=== PATIENT | male | born 1945 | race Caucasian/White ===

== ENCOUNTER 2017-01-15 09:49 | Emergency (ER) | payer MEDICARE ==
[~2017-01-15 09:49] MED LIST: ALBU8.5H3 INH; AMLO5TAB4 PO; ASPI-171 PO; BENZ100C2 PO; CEPH-264 PO; GUAI600T38 PO; IPRA3AMP NEB; POLY17PO5 PO; PRED-220 PO; ROFL500T PO
[2017-01-15] MEDS ORDERED: IV NORMAL SALINE 1,000ML 1,000 ML IV ONE (10:15)
[2017-01-15 10:26] LABS: BASO # 0.1 x10^3/uL (0.0-0.2); BASO % 1 % (0-3); EOS # 0.2 x10^3/uL (0.0-0.7); EOS % 2 % (0-3); HEMATOCRIT 46.3 % (39.0-53.0); HEMOGLOBIN 15.8 g/dL (13.0-17.5); LYMPH # 1.2 x10^3/uL (1.0-4.8); LYMPH % 13 % (24-48); MEAN CORPUSCULAR HEMOGLOBIN 28 pg (25-35); MEAN CORPUSCULAR HGB CONC 34 g/dL (31-37); MEAN CORPUSCULAR VOLUME 82 fL (79-100); MONO # 0.4 x10^3/uL (0.0-1.1); MONO % 5 % (0-9); NEUT # 7.3 x10^3uL (1.8-7.7); NEUT % 79 % (31-73); PLATELET COUNT 546 x10^3/uL (140-400); RED BLOOD COUNT 5.68 x10^6/uL (4.30-5.70); RED CELL DISTRIBUTION WIDTH 19.7 % (11.5-14.5); WHITE BLOOD COUNT 9.2 x10^3/uL (4.0-11.0)
[2017-01-15 10:37] LABS: ALBUMIN/GLOBULIN RATIO 1.2 (1.0-1.7); CALCIUM 9.3 mg/dL (8.5-10.1); CREATININE 0.8 mg/dL (0.7-1.3); POTASSIUM 3.9 mmol/L (3.5-5.1); TOTAL BILIRUBIN 1.4 mg/dL (0.2-1.0); TOTAL PROTEIN 7.3 g/dL (6.4-8.2)
[2017-01-15 11:08] LABS: BILIRUBIN,URINE NEG (NEG); CLARITY,URINE CLOUDY; COLOR,URINE YELLOW; GLUCOSE,URINE NEG (NEG); NITRITE,URINE NEG (NEG); UROBILINOGEN,URINE 0.2 mg/dL (0.2 mg/dL)
[2017-01-15 11:09] LABS: BACTERIA,URINE FEW /HPF (0-FEW); SQUAMOUS EPITHELIAL CELL,UR OCC /LPF
[2017-01-15 11:10] LABS: HYALINE CASTS, URINE OCC /HPF
[2017-01-15 11:20] LABS: INFLUENZA A PATIENT NEGATIVE (NEGATIVE); INFLUENZA B PATIENT NEGATIVE (NEGATIVE)
[2017-01-15] MEDS ORDERED: MAGNESIUM CITRATE 296 ML SOLUTION. ONE (12:18)
[2017-01-15 12:20] VITALS: BP 140/82
[2017-01-15] MEDS ORDERED: MAGNESIUM CITRATE 296 ML SOLUTION. PO ONE (12:45)
--- NOTE | 2017-01-15 12:57 | ED.ADGEN ---
Past History Past Medical History: COPD, Hypertension, Other Past Surgical History: Appendectomy Smoking: Cigarettes, Greater than 1 pack/day Alcohol Use: None Additional Alcohol Information: hx of ETOH abuse, none for 6-7 years Drug Use: None Adult General Chief Complaint Chief Complaint Lower abdominal pressure HPI HPI Patient is a 71 year old male who presents with lower abdominal pressure since yesterday. Patient states he's had decreased urination, difficulty completing bleeding. He was diagnosed with urinary tract infection last week and started on antibiotics. It is globally susceptible to many medications. He does have a history of BPH and does take Flomax. He has some chronic pain in his upper thighs, relatively recent back fracture for which she wears a brace. He reports he's not had a bowel movement for several days. Prior to this he was having loose stools for several days and was taking antispasmodic medications for greater than a week. He still passing gas, no nausea or vomiting. He's had decreased appetite. PCP is Dr. Jones Review of Systems Review of Systems Constitutional: Denies fever or chills [] Eyes: Denies change in visual acuity, redness, or eye pain [] HENT: Denies nasal congestion or sore throat [] Respiratory: Denies cough or shortness of breath [] Cardiovascular: Denies chest pain GI: Per history of present illness : Per history of present illness Musculoskeletal: Denies back pain or joint pain [] Integument: Denies rash or skin lesions [] Neurologic: Denies headache, focal weakness or sensory changes [] Current Medications Current Medications Current Medications Medications (Trade) Dose Ordered Sig/Doug Start Time Stop Time Status Last Admin Dose Admin Magnesium Citrate (Citroma) 296 ml STK-MED ONCE 01/15/17 12:18 01/15/17 12:19 DC Sodium Chloride (Iv Sodium Chloride 0.9% 1,000ml) 1,000 ml @ 1,000 mls/hr 1X ONCE 01/15/17 10:15 01/15/17 11:14 DC 01/15/17 10:16 1,000 MLS/HR Allergies Allergies Allergies Coded Allergies Type Severity Reaction Last Updated Verified No Known Drug Allergies 07/28/16 No Physical Exam Physical Exam Constitutional: Well developed, well nourished, no acute distress, non-toxic appearance. [] HENT: Normocephalic, atraumatic, bilateral external ears normal, oropharynx dry , no oral exudates, nose normal. [] Eyes: PERRLA, EOMI, conjunctiva normal, no discharge. [] Neck: Normal range of motion, no tenderness, supple, no stridor. [] Cardiovascular:Heart rate regular with regular rhythm, no murmur [] Lungs & Thorax: Bilateral breath sounds clear to auscultation, no wheeze or crackles Abdomen: Bowel sounds normal, soft, mild tenderness over the suprapubic area, no guarding, no distention, no peritoneal signs Skin: Warm, dry, no erythema, no rash. [] Back: No tenderness, no CVA tenderness. [] Extremities: No tenderness, no cyanosis, no clubbing, ROM intact, no edema. [] Neurologic: Alert and oriented X 3, normal motor function, normal sensory function, no focal deficits noted. [] . [] Current Patient Data Vital Signs Vital Signs Date Time Temp Pulse Resp B/P Pulse Ox O2 Delivery O2 Flow Rate FiO2 01/15/17 11:28 84 16 116/72 93 01/15/17 09:49 97.6 Room Air Lab Results Laboratory Tests Test 01/15/17 10:07 01/15/17 10:40 01/15/17 10:45 White Blood Count 9.2x10^3/uL (4.0-11.0) Red Blood Count 5.68x10^6/uL (4.30-5.70) Hemoglobin 15.8g/dL (13.0-17.5) Hematocrit 46.3% (39.0-53.0) Mean Corpuscular Volume 82fL (79-100) Mean Corpuscular Hemoglobin 28pg (25-35) Mean Corpuscular Hemoglobin Concent 34g/dL (31-37) Red Cell Distribution Width 19.7% (11.5-14.5) H Platelet Count 546x10^3/uL (140-400) H Neutrophils (%) (Auto) 79% (31-73) H Lymphocytes (%) (Auto) 13% (24-48) L Monocytes (%) (Auto) 5% (0-9) Eosinophils (%) (Auto) 2% (0-3) Basophils (%) (Auto) 1% (0-3) Neutrophils # (Auto) 7.3x10^3uL (1.8-7.7) Lymphocytes # (Auto) 1.2x10^3/uL (1.0-4.8) Monocytes # (Auto) 0.4x10^3/uL (0.0-1.1) Eosinophils # (Auto) 0.2x10^3/uL (0.0-0.7) Basophils # (Auto) 0.1x10^3/uL (0.0-0.2) Sodium Level 138mmol/L (136-145) Potassium Level 3.9mmol/L (3.5-5.1) Chloride Level 98mmol/L (98-107) Carbon Dioxide Level 32mmol/L (21-32) Anion Gap 8 (6-14) Blood Urea Nitrogen 5mg/dL (8-26) L Creatinine 0.8mg/dL (0.7-1.3) Estimated GFR (Cockcroft-Gault) 95.0 BUN/Creatinine Ratio 6 (6-20) Glucose Level 102mg/dL (70-99) H Calcium Level 9.3mg/dL (8.5-10.1) Total Bilirubin 1.4mg/dL (0.2-1.0) H Aspartate Amino Transferase (AST) 27U/L (15-37) Alanine Aminotransferase (ALT) 24U/L (16-63) Alkaline Phosphatase 78U/L (46-116) Total Protein 7.3g/dL (6.4-8.2) Albumin 4.0g/dL (3.4-5.0) Albumin/Globulin Ratio 1.2 (1.0-1.7) Lipase 60U/L (73-393) L Urine Collection Type U cath Urine Color Yellow Urine Clarity Cloudy Urine pH 6.5 Urine Specific [place] 1.010 Urine Protein Neg (NEG-TRACE) Urine Glucose (UA) Negmg/dL (NEG) Urine Ketones (Stick) 15mg/dL (NEG) Urine Blood Neg (NEG) Urine Nitrite Neg (NEG) Urine Bilirubin Neg (NEG) Urine Urobilinogen Dipstick 0.2mg/dL (0.2 mg/dL) Urine Leukocyte Esterase Neg (NEG) Urine RBC 1-2/HPF (0-2) Urine WBC 1-4/HPF (0-4) Urine Squamous Epithelial Cells Occ/LPF Urine Transitional Epithelial Cells /LPF Urine Bacteria Few/HPF (0-FEW) Urine Hyaline Casts Occ/HPF Urine Mucus Slight/LPF Influenza Type A (Rapid) Negative (NEGATIVE) Influenza Type B (Rapid) Negative (NEGATIVE) EKG EKG [] Radiology/Procedures Radiology/Procedures [] Course & Med Decision Making Course & Med Decision Making Pertinent Labs and Imaging studies reviewed. (See chart for details) Attempt to do a bladder scan but cannot get a estimate of urine. A Rawls was placed and 500 mils released. Patient's symptoms improved. Lab work did not show any significant abnormalities, UTI appears to be clearing with current antibiotics. I suggested the patient keep the Rawls catheter due to the difficult he been having until he completed his antibiotics and follow-up with primary care physician. Patient was wanting to come to the hospital but not for placement. I expressed that I didn't find a cause to keep him but if he had worsening symptoms or new's concerning symptoms arise he should return for reevaluation. Referred to Dr. Sue for follow-up. Final Impression Final Impression Urinary obstruction secondary to enlarged prostate Urinary tract infection [] Problems: Dragon Disclaimer Dragon Disclaimer This electronic medical record was generated, in whole or in part, using a voice recognition dictation system. AVI ZELAYA MD Jan 15, 2017 12:57
--- NOTE | 2017-01-15 13:43 | EKG ---
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
== END 2017-01-15 12:20 | disposition home or self-care (01) ==
LOC: ER 09:49
DX: N40.1 Benign prostatic hyperplasia with lower urinary tract symptoms (principal); N13.8 Other obstructive and reflux uropathy; N39.0 Urinary tract infection, site not specified; J44.9 Chronic obstructive pulmonary disease, unspecified; I10 Essential (primary) hypertension; F17.210 Nicotine dependence, cigarettes, uncomplicated; Z90.49 Acquired absence of other specified parts of digestive tract
CPT/HCPCS: 36415; 51702; 80053; 81001; 83690; 85027; 87804; 93005; 96360; 99285-25; J7030

== ENCOUNTER 2019-01-26 11:25 | Emergency (ER) | payer MEDICARE ==
[~2019-01-26] VITALS: Ht 185.4 cm; Wt 62.8 kg
[~2019-01-26 11:25] MED LIST changes: +ALBU2.5V8 INH; -ALBU8.5H3 INH; +BENZ-8 PO; -BENZ100C2 PO; -GUAI600T38 PO; +GUAI600T47 PO; -IPRA3AMP NEB; +IPRA3AMP29 NEB; -ROFL500T PO; +ROFL500T7 PO
[2019-01-26] MEDS ORDERED: IPRATRPIUM/ALBUTEROL 0.5/2.5MG 3 ML NEBU. ONE (11:33)
--- NOTE | 2019-01-26 11:41 | PHYS DOC ---
Past History Past Medical History: COPD, Hypertension, Other Past Surgical History: Appendectomy Smoking: Cigarettes, Greater than 1 pack/day Alcohol Use: None Drug Use: None Adult General Chief Complaint Chief Complaint: SHORTNESS OF BREATH HPI HPI Patient is a 73-year-old male presents with cough and shortness of breath. This has been getting worse over the past 2-3 weeks. Was brought in by EMS who noted that he had wheezes and they started a breathing treatment. He was also noted by EMS to have a room air oxygen saturation at 90% and was placed on his 3 L supplemental oxygen via nasal cannula which improved his oxygen saturation to 95 %. He notes that the cough quieted down but his difficulty breathing has gotten worse over time. Nothing seems to make the symptoms better or worse prior to the EMS treatment symptoms are moderate in intensity. He had similar symptoms when he had to be admitted for pneumonia previously.[] Review of Systems Review of Systems Constitutional: Denies fever or chills [] Eyes: Denies change in visual acuity, redness, or eye pain [] HENT: Denies nasal congestion or sore throat [] Respiratory: See history of present illness[] Cardiovascular: No chest pain or palpitations[] GI: Denies abdominal pain, nausea, vomiting, bloody stools or diarrhea [] : Denies dysuria or hematuria [] Musculoskeletal: Denies back pain or joint pain [] Integument: Denies rash or skin lesions [] Neurologic: Denies headache, focal weakness or sensory changes [] Endocrine: Denies polyuria or polydipsia [] All other systems were reviewed and found to be within normal limits, except as documented in this note. Current Medications Current Medications Current Medications Medications (Trade) Dose Ordered Sig/Doug Start Time Stop Time Status Last Admin Dose Admin Albuterol/ Ipratropium (Duoneb) 3 ml STK-MED ONCE 01/26/19 11:33 01/26/19 11:34 DC Allergies Allergies Allergies Coded Allergies Type Severity Reaction Last Updated Verified No Known Drug Allergies 07/28/16 No Physical Exam Physical Exam Constitutional: Well developed, cachectic, ill appearing, non-toxic appearance. [] HENT: Normocephalic, atraumatic, bilateral external ears normal, oropharynx moist, no oral exudates, nose normal. [] Eyes: PERRLA, EOMI, conjunctiva normal, no discharge. [] Neck: Normal range of motion, no tenderness, supple, no stridor. [] Cardiovascular:Heart rate regular rhythm, no murmur [] Lungs & Thorax: Bilateral breath sounds with herbals and wheezes[] Abdomen: Bowel sounds normal, soft, no tenderness, no masses, no pulsatile masses. [] Skin: Warm, dry, no erythema, no rash. [] Back: No tenderness, no CVA tenderness. [] Extremities: No tenderness, no cyanosis, no clubbing, ROM intact, no edema. [] Neurologic: Alert and oriented X 3, normal motor function, normal sensory function, no focal deficits noted. [] Psychologic: Affect normal, judgement normal, mood normal. [] EKG EKG EKG shows a sinus rhythm at 98 bpm, normal axis, QTC of 433 ms, no ST elevations , no acute changes when compared with EKG of 01/15/2017 and 07/18/2016. This was interpreted by me at 11:30[] Radiology/Procedures Radiology/Procedures PROCEDURE: PORTABLE CHEST 1V Single view of the chest. 01/26/2019 11:50 AM Indication: short of breath Comparison: Chest radiograph July 28, 2016 Findings: No pneumothorax or pleural effusion. Heart size is normal. Chronic diffuse interstitial coarsening is similar to comparison study. Bony thorax is grossly intact. IMPRESSION: 1. Stable radiographic appearance of the chest 2. Chronic interstitial coarsening[] Course & Med Decision Making Course & Med Decision Making Pertinent Labs and Imaging studies reviewed. (See chart for details) D course: Patient arrived, was placed in bed, and tolerated exam well. Lung sounds improved with breathing treatments. He reported feeling better after breathing treatments. After the return of laboratory studies, these were discussed with patient and family who voiced understanding. All questions were answered. Medical decision making there is no evidence of pneumonia or pneumothorax. He does have a urinary tract infection as well as a history of COPD and believe this to be an acute exacerbation. His oxygen saturations has return to his baseline levels.[] Dragon Disclaimer Dragon Disclaimer This electronic medical record was generated, in whole or in part, using a voice recognition dictation system. Departure Departure: Impression: Primary Impression: COPD exacerbation Additional Impression: Urinary tract infection Disposition: HOME, SELF-CARE Condition: IMPROVED Referrals: PALMA SAAVEDRA MD (PCP) Follow-up in 2 days Patient Instructions: Chronic Obstructive Pulmonary Disease Exacerbation, Urinary Tract Infection Additional Instructions: Follow-up with your regular doctor. Take medication as prescribed. Return to the ER if worsening difficulty breathing, you develop a fever of more than 101 , or any other concerns. Scripts Albuterol Sulfate (VENTOLIN HFA INHALER) 18 Gm Hfa.aer.ad 2 PUFF IH PRN Q4HRS PRN for FOR ASTHMA, #1 INHALER 0 Refills Prov: MARTI DUMONT DO 01/26/19 Prednisone (PREDNISONE) 50 Mg Tablet 1 TAB PO DAILY for INFLAMMATION, #5 TAB Prov: MARTI DUMONT DO 01/26/19 Cephalexin (KEFLEX) 500 Mg Capsule 500 MG PO TID for UTI for 10 Days, #30 CAP Prov: MARTI DUMONT DO 01/26/19 Problem Qualifiers Additional Impression: Urinary tract infection Urinary tract infection type: site unspecified Hematuria presence: without hematuria Qualified Codes: N39.0 - Urinary tract infection, site not specified MARTI DUMONT DO Jan 26, 2019 11:41
[2019-01-26] MEDS ORDERED: IPRATRPIUM/ALBUTEROL 0.5/2.5MG 3 ML NEBU. NEB ONE (11:45)
[2019-01-26 11:56] LABS: BASO # 0.1 x10^3/uL (0.0-0.2); BASO % 1 % (0-3); EOS # 0.1 x10^3/uL (0.0-0.7); EOS % 1 % (0-3); HEMATOCRIT 43.9 % (39.0-53.0); HEMOGLOBIN 14.9 g/dL (13.0-17.5); LYMPH # 0.7 x10^3/uL (1.0-4.8); LYMPH % 8 % (24-48); MEAN CORPUSCULAR HEMOGLOBIN 28 pg (25-35); MEAN CORPUSCULAR HGB CONC 34 g/dL (31-37); MEAN CORPUSCULAR VOLUME 82 fL (79-100); MONO # 0.4 x10^3/uL (0.0-1.1); MONO % 4 % (0-9); NEUT # 8.5 x10^3uL (1.8-7.7); NEUT % 87 % (31-73); PLATELET COUNT 677 x10^3/uL (140-400); RED BLOOD COUNT 5.38 x10^6/uL (4.30-5.70); RED CELL DISTRIBUTION WIDTH 17.7 % (11.5-14.5); WHITE BLOOD COUNT 9.8 x10^3/uL (4.0-11.0)
--- NOTE | 2019-01-26 11:58 | EKG ---
[address] [address] Test Date: 2019-01-26 Test Time: 11:30:41 Pat Name: ADONIS GARCIA Department: Room: Gender: M Vendor Management Consultant: SURJIT : 1945 Requested By: MARTI DUMONT Order Number: [id number] Reading MD: Destin Radford Measurements Intervals [place] Rate: 98 P: 41 LA: 202 QRS: 46 QRSD: 88 T: 70 QT: 338 QTc: 433 Interpretive Statements SINUS RHYTHM Electronically Signed On 01-31-2019 13:22:41 CDT by Destin Radford
[2019-01-26 12:10] LABS: ALBUMIN/GLOBULIN RATIO 1.2 (1.0-1.7); CALCIUM 9.3 mg/dL (8.5-10.1); CREATININE 0.6 mg/dL (0.7-1.3); GFR 131.7; POTASSIUM 3.9 mmol/L (3.5-5.1); TOTAL PROTEIN 7.4 g/dL (6.4-8.2)
[2019-01-26] MEDS ORDERED: ALBUTEROL SULFATE 2.5 MG/3 ML NEBU. NEB ONE (12:15)
--- NOTE | 2019-01-26 12:20 | RAD ---
Single view of the chest. 01/26/2019 11:50 AM Indication: short of breath Comparison: Chest radiograph July 28, 2016 Findings: No pneumothorax or pleural effusion. Heart size is normal. Chronic diffuse interstitial coarsening is similar to comparison study. Bony thorax is grossly intact. IMPRESSION: 1. Stable radiographic appearance of the chest 2. Chronic interstitial coarsening Electronically signed by: Krishna Alarcon MD (01/26/2019 12:17 PM) [id number]
[2019-01-26 12:35] LABS: INFLUENZA A PATIENT NEGATIVE (NEGATIVE); INFLUENZA B PATIENT NEGATIVE (NEGATIVE)
[2019-01-26 13:05] LABS: BACTERIA,URINE MANY /HPF (0-FEW); BILIRUBIN,URINE NEG (NEG); CLARITY,URINE HAZY; COLOR,URINE YELLOW; GLUCOSE,URINE NEG (NEG); NITRITE,URINE POS (NEG); RBC,URINE 0 /HPF (0-2); SQUAMOUS EPITHELIAL CELL,UR OCC /LPF; UROBILINOGEN,URINE 0.2 mg/dL (0.2 mg/dL)
[2019-01-26 13:11] VITALS: BP 124/76
[2019-01-26] MEDS ORDERED: PRED50TA PO (13:31)
[2019-01-26] MEDS ORDERED: CEPH-264 PO (13:31)
[2019-01-26] MEDS ORDERED: ALBU2.5V8 IH (13:31)
== END 2019-01-26 13:42 | disposition home or self-care (01) ==
LOC: ER 11:25
DX: J44.1 Chronic obstructive pulmonary disease with (acute) exacerbation (principal); N39.0 Urinary tract infection, site not specified; I10 Essential (primary) hypertension; F17.210 Nicotine dependence, cigarettes, uncomplicated
CPT/HCPCS: 36415; 71045; 80053; 81001; 83880; 84484; 85025; 87040; 87086; 87804; 93005; 94640; 99285; J7613; J7620; 87186

== ENCOUNTER 2020-05-18 10:11 | Inpatient (IN) | payer MEDICARE ==
[~2020-05-18] VITALS: Ht 185.4 cm; Wt 55.2 kg
[~2020-05-18 10:11] MED LIST changes: +ALBU2.5V8 IH; +PRED50TA PO
[2020-05-18] MEDS ORDERED: IOHEXOL 240 MG/ML 50ML VIAL. ONE (11:01)
[2020-05-18 11:02] LABS: BASO # 0.1 x10^3/uL (0.0-0.2); BASO % 1 % (0-3); EOS # 0.1 x10^3/uL (0.0-0.7); EOS % 1 % (0-3); HEMATOCRIT 43.9 % (39.0-53.0); HEMOGLOBIN 14.6 g/dL (13.0-17.5); LYMPH # 0.7 x10^3/uL (1.0-4.8); LYMPH % 5 % (24-48); MEAN CORPUSCULAR HEMOGLOBIN 26 pg (25-35); MEAN CORPUSCULAR HGB CONC 33 g/dL (31-37); MEAN CORPUSCULAR VOLUME 80 fL (79-100); MONO # 0.5 x10^3/uL (0.0-1.1); MONO % 3 % (0-9); NEUT # 13.2 x10^3uL (1.8-7.7); NEUT % 90 % (31-73); RED BLOOD COUNT 5.53 x10^6/uL (4.30-5.70); RED CELL DISTRIBUTION WIDTH 17.8 % (11.5-14.5); WHITE BLOOD COUNT 14.7 x10^3/uL (4.0-11.0)
[2020-05-18 11:06] LABS: CALCIUM 8.8 mg/dL (8.5-10.1); CREATININE 0.6 mg/dL (0.7-1.3); POTASSIUM 4.2 mmol/L (3.5-5.1)
[2020-05-18 11:12] LABS: ALBUMIN 3.3 g/dL (3.4-5.0); TOTAL BILIRUBIN 0.8 mg/dL (0.2-1.0); TOTAL PROTEIN 6.5 g/dL (6.4-8.2)
[2020-05-18 11:25] LABS: PLATELET COUNT 994 x10^3/uL (140-400)
[2020-05-18 11:27] LABS: ANISOCYTOSIS SLIGHT; PLT ESTIMATE INCREASED (ADEQUATE); POLYCHROMASIA SLIGHT
[2020-05-18] MEDS ORDERED: MORPHINE SULFATE 4 MG/ML DISP.SYRIN. IV ONE (11:30)
[2020-05-18] MEDS ORDERED: IOHEXOL 300 MG/ML 75 ML VIAL. IV ONE (12:00)
[2020-05-18] MEDS ORDERED: IOHEXOL 240 MG/ML 50ML VIAL. PO ONE (12:00)
--- NOTE | 2020-05-18 12:49 | PHYS DOC ---
Past History Past Medical History: COPD, Lung Disease Past Surgical History: No Surgical History Smoking: Cigarettes, Greater than 1 pack/day Additional Smoking Information: 10/13 PPD Alcohol Use: None Drug Use: None Adult General Chief Complaint Chief Complaint: CONSTIPATION HPI HPI Patient is a 75 year old male who presents with constipation and back pain. Patient states that 12 days ago he laid down on his bed wrong and thinks that he must have broken his back. Since then he has not been able to get up and move around. He states he cannot sit on the toilet so he has not been able to poop and that he feels very constipated. He is having a lot of belly pain. He denies any nausea or vomiting. He is requesting pain medicine for his back. Review of Systems Review of Systems General: Denies fever, chills, sweats, fatigue Eyes: Denies drainage, blurred vision, eye redness HENT: Denies rhinorrhea, sore throat, earache Respiratory: Denies cough, shortness of breath, wheezing Cardiac: Denies edema, palpitations, chest pain GI: Reports abdominal pain, constipation MSK: Denies neck pain reports back pain Skin: Denies rash, jaundice Neuro: Denies headache, dizziness Psychiatric: Denies SI/HI Current Medications Current Medications Current Medications Medications (Trade) Dose Ordered Sig/Doug Start Time Stop Time Status Last Admin Dose Admin Iohexol (Omnipaque 240 Mg/ml) 50 ml 1X ONCE 05/18/20 12:00 05/18/20 12:01 DC 05/18/20 12:16 50 ML Iohexol (Omnipaque 300 Mg/ml) 75 ml 1X ONCE 05/18/20 12:00 05/18/20 12:01 DC 05/18/20 12:16 75 ML Morphine Sulfate (Morphine 4mg Syringe) 4 mg 1X ONCE 05/18/20 11:30 05/18/20 11:31 DC 05/18/20 11:41 4 MG Allergies Allergies Allergies Coded Allergies Type Severity Reaction Last Updated Verified No Known Drug Allergies 07/28/16 No Physical Exam Physical Exam General: Awake, alert, NAD. Cachectic. Cooperative HEENT: Atraumatic, EOMI, PERRL, airway patent, moist oral mucosa Neck: Supple, trachea midline Respiratory: Normal effort, minimal wheezing, minimal crackles CV: RRR, no murmur, cap refill <2 GI: Soft, nondistended, diffuse tenderness MSK: No obvious deformities Skin: Warm, dry, intact Neuro: A&O x3, speech NL, sensory and motor grossly intact, no focal deficits Psych: Normal affect, normal mood, not suicidal or homicidal Current Patient Data Vital Signs Vital Signs Date Time Temp Pulse Resp B/P (MAP) Pulse Ox O2 Delivery O2 Flow Rate FiO2 05/18/20 11:41 20 94 Room Air 05/18/20 10:39 98.6 96 148/88 (108) Lab Results Laboratory Tests Test 05/18/20 10:25 White Blood Count 14.7 x10^3/uL (4.0-11.0) H Red Blood Count 5.53 x10^6/uL (4.30-5.70) Hemoglobin 14.6 g/dL (13.0-17.5) Hematocrit 43.9 % (39.0-53.0) Mean Corpuscular Volume 80 fL (79-100) Mean Corpuscular Hemoglobin 26 pg (25-35) Mean Corpuscular Hemoglobin Concent 33 g/dL (31-37) Red Cell Distribution Width 17.8 % (11.5-14.5) H Platelet Count 994 x10^3/uL (140-400) *H Neutrophils (%) (Auto) 90 % (31-73) H Lymphocytes (%) (Auto) 5 % (24-48) L Monocytes (%) (Auto) 3 % (0-9) Eosinophils (%) (Auto) 1 % (0-3) Basophils (%) (Auto) 1 % (0-3) Neutrophils # (Auto) 13.2 x10^3uL (1.8-7.7) H Lymphocytes # (Auto) 0.7 x10^3/uL (1.0-4.8) L Monocytes # (Auto) 0.5 x10^3/uL (0.0-1.1) Eosinophils # (Auto) 0.1 x10^3/uL (0.0-0.7) Basophils # (Auto) 0.1 x10^3/uL (0.0-0.2) Platelet Estimate Increased (ADEQUATE) Large Platelets Few Giant Platelets Occ Polychromasia Slight Anisocytosis Slight Sodium Level 127 mmol/L (136-145) L Potassium Level 4.2 mmol/L (3.5-5.1) Chloride Level 91 mmol/L (98-107) L Carbon Dioxide Level 32 mmol/L (21-32) Anion Gap 4 (6-14) L Blood Urea Nitrogen 9 mg/dL (8-26) Creatinine 0.6 mg/dL (0.7-1.3) L Estimated GFR (Cockcroft-Gault) 131.0 BUN/Creatinine Ratio 15 (6-20) Glucose Level 99 mg/dL (70-99) Calcium Level 8.8 mg/dL (8.5-10.1) Total Bilirubin 0.8 mg/dL (0.2-1.0) Aspartate Amino Transferase (AST) 23 U/L (15-37) Alanine Aminotransferase (ALT) 14 U/L (16-63) L Alkaline Phosphatase 92 U/L (46-116) Total Protein 6.5 g/dL (6.4-8.2) Albumin 3.3 g/dL (3.4-5.0) L Albumin/Globulin Ratio 1.0 (1.0-1.7) EKG EKG [] Radiology/Procedures Radiology/Procedures [] Course & Med Decision Making Course & Med Decision Making Pertinent Labs and Imaging studies reviewed. (See chart for details) Patient is a 75-year-old male who presents to the emergency room with constipation, back pain. Patient generally appears unwell. Basic labs were ordered and a CT abdomen pelvis was ordered. Dragon Disclaimer Dragon Disclaimer This electronic medical record was generated, in whole or in part, using a voice recognition dictation system. Departure Departure: Disposition: 01 HOME/RESIDENCE PRIOR TO ADM Condition: STABLE Referrals: PALMA SAAVEDRA MD (PCP) Justification of Admission: Justification of Admission: Justification of Admission Dx: Yes DUINA OWENS MD May 18, 2020 12:49
--- NOTE | 2020-05-18 12:59 | RAD ---
CT ABD PELV W/ORAL IV CONTRAST Indication: Constipation, recent fall, back pain Technique: Postcontrast CT imaging was performed of the abdomen pelvis, multiplanar reconstruction images submitted. Oral contrast was also given. One or more of the following individualized dose reduction techniques were utilized for this examination: 1. Automated exposure control 2. Adjustment of the mA and/or kV according to patient size 3. Use of iterative reconstruction technique. Comparison: None Findings: There is some motion degradation. There is some dependent likely atelectasis of the lower lobes bilaterally, less likely infiltrates given symmetric location. There is coronary calcification. There is a 0.7 cm hypodense lesion of the right lobe of liver, density measurements suggestive of cyst 10 Hounsfield units. There is also hypodense lesion of the left lobe of liver about 0.8 cm somewhat difficult to accurately characterize although may be a cyst. Both kidneys enhance, no significant hydronephrosis. There is small 0.5 cm left renal calculus. There is 1.7 cm hypodense lesion of the mid to superior right kidney with density measurements of a cyst. There is a small 0.6 cm hypodense lesion of the mid left kidney difficult to otherwise accurately characterize. There is splenomegaly, 16.6 cm longitudinal. There is no adrenal nodularity. No significant focal abnormality is identified of the spleen or atrophic pancreas. There is diffuse calcified plaque of the abdominal aorta and branches. There is some stenosis of the left common iliac artery, significant stenosis of the right proximal external iliac artery, also likely significant stenoses of the proximal superior mesenteric and celiac arteries. Gallbladder is present without obvious intraluminal abnormality, likely fold present. There is prominent distention of urinary bladder. There is dependent hyperdensity in the urinary bladder on the right likely in part from a large 2.7 cm calculus and other smaller calculi, no contrast in the ureters during exam. There is prominent stool dilatation of the more distal sigmoid colon to rectum, dilatation up to about 9.5 cm. There is a lesser degree of retained stool in the right colon, remainder of the colon and small bowel not significantly dilated. No free air is identified. There are 4 cannulated screws of the proximal right femur. There is absence of normal right femoral head, replaced by nonspecific fluid collection. Proximal right femur is subluxed laterally and superiorly relative to the acetabulum. There is bone demineralization. There is again severe compression deformity of L1 with osseous retropulsion inferiorly. There is again superior compression deformity of L3. There is a somewhat greater degree of central compression deformity of L2. There is central compression deformity of T9 vertebral body new since [address] exam although otherwise cannot characterize chronicity. There is multilevel lumbar facet degenerative change. There is lumbar levoscoliosis. IMPRESSION: 1. There is stool dilatation of the distal sigmoid colon to the rectum which may be due to fecal impaction. 2. There is prominent distention of urinary bladder, dependent bladder calculi on the right. 3. There is T9 compression new since previous [address] although otherwise difficult to characterize age, could be more recent especially if focal point tenderness. There is also somewhat greater degree of central height loss of L2 vertebral body. 4. There are significant stenoses of the iliac arteries as well as near the origins of the superior mesenteric and celiac arteries by calcified plaque. 5. There is splenomegaly. 6. There are small nonobstructive left renal calculus. 7. There is bony erosion/absence of normal right femoral head, replaced by nonspecific fluid collection. Proximal right femur is subluxed superiorly and lateral to the acetabulum. 8. There is coronary calcification. Electronically signed by: Davidson Mehta MD (05/18/2020 12:56 PM) [id number]
[2020-05-18 13:50] LABS: BILIRUBIN,URINE NEG (NEG); CLARITY,URINE HAZY; COLOR,URINE YELLOW; GLUCOSE,URINE NEG (NEG)
[2020-05-18 13:51] LABS: AMORPHOUS SEDIMENT,UR PRESENT /HPF; BACTERIA,URINE MANY /HPF (0-FEW); HYALINE CASTS, URINE OCC /HPF; NITRITE,URINE POS (NEG); SQUAMOUS EPITHELIAL CELL,UR FEW /LPF; UROBILINOGEN,URINE 0.2 mg/dL (0.2 mg/dL)
[2020-05-18] MEDS ORDERED: POLYETHYLENE GLYCOL 3350 17 GM PACKET. PO ONE (14:00)
[2020-05-18] MEDS: MORPHINE SULFATE 2 MG/ML DISP.SYRIN. IVP PRN ×2 (15:26→20:43)
[2020-05-18 16:26] VITALS: BP 128/72
--- NOTE | 2020-05-18 16:28 | NUR ---
NSG NOTE; ADMISSION ADMIT TO ROOM 109 FROM ED VIA CART ACCOMP BY EMS PERSONNEL C/O BACK PAIN X 12 DAYS AFTER FALL EXACERBATING A BACK INJURY. PT STATES HE WAS UNABLE TO STAND THE PAIN TO SIT ON THE TOILET, SO HAS HELD HIS STOOL FOR 12 DAYS. MESSAGE LEFT ON SON'S PHONE TO OBTAIN HOME MED LIST AND HISTORY.
[2020-05-18] MEDS ORDERED: SODIUM PHOSPHATES 19/7GM 133 ML ENEMA. PR ONE (16:30)
--- NOTE | 2020-05-18 16:45 | NUR ---
NSG NOTE; STRAIGHT CATH ON ARRIVAL TO FLOOR PT C/O BLADDER DISTENTION BUT WAS UNABLE TO VOID IN A URINAL. STRAIGHT CATH WITH 16 FR UNSUCCESSFUL- PT STATES HE HAS ENLARGED PROSTATE STRAIGHT CATH WITH 18 FR CAUDET SUCCESSFUL WITH 525 ML URINE RETURNED. PT REQUESTED CATH TO BE REMOVED AND NOT LEFT IN WILL CONT TO MONITOR FOR BLADDER DISTENTION
--- NOTE | 2020-05-18 17:40 | NUR ---
NSG NOTE; STATUS AT HOME PT LIVES HOME ALONE NEXT DOOR TO HIS SON, GIGI, WHO IS HIS BOATSWAIN'S MATE. THE PT HAS BEEN NON AMBULATORY X 5 YEARS WITH HIS SON REQUIRED FOR TRANSFERS TO BS AND CHAIR. PT IS USUALLY UP OUT OF BED SEVERAL TIMES A DAY FOR 1-2 HOURS AT A TIME. 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 PT EATS VERY LITTLE AND DRINKS 2-3 ENSURE PER DAY. HE HAS LOST WEIGHT OVER THE LAST FEW YEARS. DIETARY CONSULTED PT DOES HAVE FREQ CONSTIPATION AND NEEDS TO DIGITALLY REMOVE THE STOOL AT TIMES. HE STATES THAT AFTER A FALL 12 DAYS AGO, HE WAS NOT ABLE TO SIT ON THE COMMODE AND HAS RETAINED HIS STOOL SINCE THEN. SON STATES PT USUALLY ONLY HAS A BM ONCE A WEEK HE EATS VERY LITTLE FOOD. SON REQUESTS PT TO GO TO PHYSICAL REHAB WHEN ABLE BUT REFUSES LINING PARTS SEWER PLACEMENT. I DISCUSSED WITH THE SON THAT THE PT WILL NOT BE ABLE TO BE PHYSICALLY REHABed AND MAY NOT BE ELIGIBLE FOR SKILLED PLACEMENT. EXAMINING CHAIR ASSEMBLER CONSULTED.
[2020-05-18] MEDS ORDERED: TAMS0.4C97 PO (18:10)
[2020-05-18 20:30] VITALS: BP 113/80
[2020-05-18] MEDS: DOCUSATE SODIUM 100 MG CAPSULE PO SCH (20:43)
[2020-05-18] MEDS ORDERED: ALBUTEROL SULFATE 2.5 MG/3 ML NEBU. INH PRN (21:45)
--- NOTE | 2020-05-18 22:01 | NUR ---
Pt incontinent of stool. Cleansed x2 assist. Pt had moderate, loose stool. Reports mild relief.
[2020-05-18 23:10] VITALS: BP 108/73
[2020-05-19] MEDS: MORPHINE SULFATE 2 MG/ML DISP.SYRIN. IVP PRN ×2 (01:31→05:46)
--- NOTE | 2020-05-19 05:15 | NUR ---
Pt unable to void in urinal this shift. Pt. has made multiple attempts w/o success. Pt c/o bladder distention. Bladder scan performed showing over 630mL in bladder. 16F coude catheter placed w/ immediate return of 550mL clear, claudio urine. Pt reports significant relief.
[2020-05-19 06:08] VITALS: BP 110/74
[2020-05-19] MEDS ORDERED: IV NORMAL SALINE 1,000ML 1,000 ML IV SCH (08:45)
[2020-05-19] MEDS ORDERED: MAGNESIUM CITRATE 296 ML SOLUTION. PO ONE (08:45)
[2020-05-19] MEDS: DOCUSATE SODIUM 100 MG CAPSULE PO SCH (09:00)
[2020-05-19] MEDS ORDERED: POLYETHYLENE GLYCOL 3350 17 GM PACKET. PO SCH (09:00)
[2020-05-19] MEDS ORDERED: TAMSULOSIN 0.4 MG CAP.ER.24H. PO SCH (09:00)
--- NOTE | 2020-05-19 09:33 | HP ---
ADMIT DATE: 05/18/2020 ATTENDING PHYSICIAN: Dr. Santos. CHIEF COMPLAINT: Back pain and constipation. HISTORY OF PRESENT ILLNESS: The patient is a 75-year-old gentleman who has been in decline. He lives alone. He has a son who lives nearby. Twelve days prior to admission, he fell and sustained acute mid back injury. CT demonstrated an acute compression fracture at the T9 level with loss of vertebral body height. He has been at bed. The pain is severe incapacitating. He does not see doctors very well, has not taken any pain meds. He is constipated. He has not had a bowel movement in 10 days and the obstructive series showed he is full of stool. He is having a lot of belly pain due to constipation. No nausea. He continues to smoke greater than 1 pack of cigarettes a day, remotely years ago he was a heavy drinker too. The patient lives alone. The family is not here. He cannot care for himself. He is admitted then with control of intractable low back pain as well as managing his bowels. Unfortunately, the patient has reached the point in his life where he cannot take care of himself. He stated he does not want to go to a fpc. We shall have rifle case repairer come and see him as well as discuss the case with his son when he is available. PAST MEDICAL HISTORY: Significant for COPD due to heavy smoking. He used to be a heavy drinker, but he has quit several years ago. PAST SURGICAL HISTORY: None. CURRENT MEDICINES: He was taking albuterol as needed. ALLERGIES: He has no known drug allergies. He has not seen a physician and tries to avoid seeing doctors. FAMILY HISTORY: Mom at age 68 of lung cancer. Father of ulcer disease at age 48. He worked in the [employer] industry. He is single. He is retired. He has a son and a [id number] that lives nearby. REVIEW OF SYSTEMS: Significant for weight loss, at one time he weighed over 200 pounds, he is down to 120 pounds. He has been constipated. He has had nausea, he has had back pain. He clearly has osteoporosis. He denied any other recent falls. He is not actively drinking at this time. He has poor appetite. No recent fevers or COVID-19 exposure. All other systems reviewed and turned to be negative. PHYSICAL EXAMINATION: GENERAL: When I saw him, this is a very disheveled gentleman who appears older than the stated age. INITIAL VITAL SIGNS: Showed a blood pressure 110/74, pulse is 94 and regular, temperature 98.1 degrees Fahrenheit, oxygen saturation 93% on 2 liters nasal cannula. HEENT: Pupils are reactive. Sclerae nonicteric. The orbits are sunken. Mucous membranes dry. His facial muscles are shrunken. NECK: Supple. There are no bruits. LUNGS: Coarse rhonchi bilaterally with noticeable rattles. CARDIOVASCULAR: Showed distant heart tones. No obvious gallops. Peripheral pulses are palpable, but weak. ABDOMEN: Soft, scaphoid, nontender, no guarding or rebound tenderness. Bowel sounds are hypoactive. EXTREMITIES: Showed significant muscle wasting. He is incontinent. Rawls catheter is in place. SKIN: Cool. PERTINENT LABORATORY STUDIES: The hemoglobin is 14.6 g/dL with a white count of 14,700. Interestingly, the platelet count is 994,000. Chemistry shows sodium 127 mEq, potassium 4.2 mEq, creatinine 0.6. Liver functions were normal. Urinalysis showed a specific gravity 1.010. Few sediments. IMAGING STUDIES: A CT of the abdomen and pelvis confirmed the compression fracture at the T9 level. There is a large amount of stool, dilatation of distal sigmoid colon due to fecal impaction, significant stenosis of the iliac arteries near the origin with calcified plaque, splenomegaly is identified. There is bony erosion of normal right femoral head with subluxation. ASSESSMENT: 1. This 75-year-old gentleman fell sustaining injury and compression fractures of T9 vertebral body with loss of vertebral height. 2. Profound constipation with fecal impaction. 3. Advanced chronic obstructive pulmonary disease. 4. Dehydration. 5. Hyponatremia due to poor intake. 6. Generalized debilitation. 7. Osteoporosis. 8. Chronic obstructive pulmonary disease and continued tobacco use. 9. Abnormal bony structures of the femur. Etiology is unclear. 10. Primary thrombocytosis. Whether this is an acute phase reactant where he had a bone marrow issue, remains to be seen. PLAN: 1. Admit to the inpatient unit. 2. Magnesium citrate to evacuate bowels. 3. Pain management. 4. Gentle IV hydration with saline. 5. Serial chemistries. 6. Forest Fire Prevention Specialist to visit with the patient regarding placement. He adamantly refused to go to a fpc. I do not know whether the son has power of title attorney. We will decide disposition by the first part of next week. He wants to go home, but clearly has reached the point of life where he cannot manage by himself. KARINE SANTOS MD DR: MIC/elizabeth JOB#: [id number] / [id number]
[2020-05-19 11:15] VITALS: BP 106/68
[2020-05-19 14:50] VITALS: BP 101/63
[2020-05-19] MEDS ORDERED: guaiFENesin DM 600/30MG 1 TAB TAB.ER.12H PO SCH (15:15)
[2020-05-19] MEDS ORDERED: CALCIUM CHLORIDE 1,000 MG/10 ML DISP.SYRIN IV ONE (17:30)
[2020-05-19] MEDS ORDERED: SODIUM BICARB ADULT 8.4% 50 MEQ/50 ML DISP.SYRIN. ONE (17:30)
[2020-05-19] MEDS ORDERED: EPINEPHrine SYRINGE 1 MG/10 ML SYRINGE ONE (17:30)
--- NOTE | 2020-05-19 21:06 | NUR ---
Pt's son, Pan Helms returned call at 1954, informed of pt . Son wishes body be released to [facility]. home contacted and body released at 2104. Pt came with no personal belongings.
--- NOTE | 2020-05-19 23:31 | DS ---
DATE OF DISCHARGE: 05/19/2020 DATE OF EXPIRATION: 05/19/2020 ATTENDING PHYSICIAN: Dr. Santos. FINAL DISCHARGE DIAGNOSES AND CAUSE OF : 1. Acute cardiopulmonary arrest. 2. Unsuccessful resuscitation. 3. Chronic obstructive pulmonary disease. 4. Constipation and fecal impaction. 5. Recent fall with T9 vertebral body compression fracture. 6. Dehydration. 7. Hyponatremia due to poor intake. 8. Generalized debilitation. 9. Osteoporosis. 10. Chronic obstructive pulmonary disease and continued tobacco use. 11. Abnormal bony structures of the femur. 12. Primary thrombocytosis. HISTORY AND PHYSICAL: This is a 75-year-old gentleman who had not sought medical care. He has been tried to manage at home. He fell 12 days ago and sustained an injury to the mid back. CT scan of the spine showed an acute compression fracture of the T9 vertebral body. He laid in bed. He was constipated. He came to the ED. Supposedly, a son was caring for him, but was unable to manage this. I have not seen the family. In any event, he was admitted for further treatment and evaluation and hopefully, eventual placement. He was here for fecal impaction as well as treatment of his pain. PHYSICAL EXAMINATION: Please see the dictated note. PERTINENT LABORATORY AND X-RAY STUDIES: On this admission, his hemoglobin was 14.6 g/dL, white count 14,700, platelet counts were elevated at 994,000 per cubic cm. I do not have a previous value. Creatinine 0.6 mg percent, sodium 127 mEq, potassium 4.2 mEq. Liver panel unremarkable. Total protein was 6.5. Urinalysis is fairly unremarkable with a few white cells and sediment. IMAGING STUDIES: He had a CT of the abdomen and pelvis, which showed stool dilatation of the distal sigmoid colon. He has splenomegaly measuring 16.6 cm, prominent distention of the urinary bladder with the dependent bladder calculi. There is a T9 compression fracture, new since 2016. There is significant stenosis of the iliac arteries as well as origin of the superior mesenteric and celiac arteries by calcified plaque, a small left renal calculus and there is bony erosion absence of the normal right femoral head replaced by nonspecific fluid collection. Etiology of this is unclear. COURSE IN THE HOSPITAL: The patient was admitted through the ED for pain control, gentle IV hydration and management of his bowels. He had not had a bowel movement in the last 11 days. He responded well to magnesium citrate, gentle IV hydration was started. His pain was managed with bed rest. Shortly on the afternoon of the second hospital day, the nursing staff found the patient unresponsive. Because we had not ascertained a code status, a code blue was initiated. Emergency personnel and the ER physician came and initiated a code resuscitation. Efforts; however, were unsuccessful and the patient was pronounced on the afternoon of 05/19. Family will be notified of his demise. Etiology of his cause is unclear. He clinically did not have any pneumonia symptoms, it could have been a cardiac, but he had no preceding chest pain. It is very likely he could have had a pulmonary embolus since he has been at bed rest for the last 11 days. In any event, he was pronounced on the afternoon of 05/19. KARINE SANTOS MD DR: MIC/elizabeth JOB#: [id number] / [id number] Ashley Fox
--- NOTE | 2020-05-20 06:43 | PDOC ---
PROVIDER NOTE PROVIDER NOTE PROVIDER NOTE Code Note: I was paged from the emergency department at approximately 1725 on 05/19/2020 4 CODE BLUE. I was transported emergently to the hospital. I arrived to the [facility] ent's room approximately 5 minutes after code had been initiated. Upon entering the room chest compressions were being performed. Per nursing the patient was hospitalized for constipation. They state that he was not on telemetry. Nursing states the last time that they checked on him was approximately 90 minutes prior to him being found pulseless. Therefore, unwitnessed arrest. Patient was placed on defibrillator. Initial pulse and rhythm check revealed asystole. 1 mg of epinephrine was administered. [id number] ventilation was performed initially. I did perform intubation successfully without complication. Multiple rounds of CPR were performed. Patient's rhythm remained in asystole throughout. Approximately 4 mg of epinephrine were administered. 50 mEQ of sodium bicarbonate. 2 g of calcium were administered. Multiple rounds of CPR and resuscitative efforts were performed. We did attempt to call the patient's son to update him on the patient's status. Multiple calls and voicemails were left and were unsuccessful to reach him. After approximately 20 to 30 minutes of CPR his rhythm remained asystole without change. Given the unwitnessed nature of the arrest and asystole rhythm the decision was made to terminate resuscitative efforts after approximately 30 minutes of CPR. Time of 1804. Endotracheal Intubation Procedure Note Sedation Plan: None Procedure Details: Procedure: Endotracheal intubation Indication: Acute Respiratory Failure secondary to cardiac arrest Consent: Emergency consent Procedure: The patient was placed in the supine position and pre-oxygenated with 100% oxygen via BVM. Sedation was given with no medication. Using a mac 3 blade, the cords were visualized; an 7.5 cuffed tube was able to be passed through the cords with direct visualization. Condensation was seen in the tube; bilateral breath-sounds were present, with none auscultated over the abdomen; good color change was present on EtCO2 detector. The ETT was secured at 21 cm at the lips. [id number] ventilation was continued. The patient tolerated procedure without immediate complication. Yovani Gorman DO Justification of Admission: Justification of Admission: Justification of Admission Dx: Yes YOVANI GORMAN DO May 20, 2020 06:43
== END 2020-05-19 21:05 | disposition expired | DRG 542 ==
LOC: ER 10:11 → 1 SOUTH 14:23
PROVIDERS: ADMIT Hospitalist; ATTEND Hospitalist
PROC: 0BH17EZ Insertion of Endotracheal Airway into Trachea, Via Natural or Artificial Opening (ICD-10-PCS; principal; 2020-05-19)
DX: M48.54XA Collapsed vertebra, not elsewhere classified, thoracic region, initial encounter for fracture (principal); I26.99 Other pulmonary embolism without acute cor pulmonale; E87.1 Hypo-osmolality and hyponatremia; K56.41 Fecal impaction; I46.9 Cardiac arrest, cause unspecified; D47.3 Essential (hemorrhagic) thrombocythemia; E86.0 Dehydration; F17.210 Nicotine dependence, cigarettes, uncomplicated; J44.9 Chronic obstructive pulmonary disease, unspecified; M81.0 Age-related osteoporosis without current pathological fracture; Z80.1 Family history of malignant neoplasm of trachea, bronchus and lung; Z60.2 Problems related to living alone; Z79.899 Other long term (current) drug therapy
CPT/HCPCS: 36415; 74177; 80053; 81001; 82947; 85025; 87086; 96374; 99406; J0171; J2270; Q9966; Q9967; 99285-25; J7030; J7613